=== PATIENT | female | born 1985 | race Two or more races ===

== ENCOUNTER 2025-01-12 12:20 | Outpatient (CLI) | payer BC ==
[2025-01-12 13:23] LABS: % IRON SATURATION 7.0 % (11-46)
[2025-01-14 15:16] LABS: FSH, SERUM 3.5 mIU/mL (.); LUTEINIZING HORMONE 7.1 mIU/mL (.)
== END 2025-01-12 23:59 | disposition home or self-care (01) ==
LOC: RAD 12:20
PROVIDERS: ATTEND Nurse Practitioner Family
DX: N92.0 Excessive and frequent menstruation with regular cycle (principal)
CPT/HCPCS: 36415; 83001; 83002; 83036; 83540; 83550